=== PATIENT | female | born 1945 | race Caucasian/White ===

== ENCOUNTER 2018-02-21 13:25 | Emergency (ER) | payer MEDICARE | END 2018-02-21 14:23 | disposition home or self-care (01) | LOC: EDH 13:25 | DX: S62.002A Unspecified fracture of navicular [scaphoid] bone of left wrist, initial encounter for closed fracture (principal); Z79.899 Other long term (current) drug therapy; W18.39XA Other fall on same level, initial encounter; Y93.89 Activity, other specified; Y92.098 Other place in other non-institutional residence as the place of occurrence of the external cause; Y99.8 Other external cause status | CPT/HCPCS: 29125; 73110 ==

== ENCOUNTER 2022-08-28 09:41 | Emergency (ER) | payer MEDICARE ==
[~2022-08-28] VITALS: Ht 160 cm; Wt 70.8 kg
[2022-08-28] MEDS ORDERED: NAPR375T6 PO (10:39)
[2022-08-28 10:43] VITALS: BP 131/65
== END 2022-08-28 10:52 | disposition home or self-care (01) ==
LOC: EDH 09:41
DX: S86.911A Strain of unspecified muscle(s) and tendon(s) at lower leg level, right leg, initial encounter (principal); Z90.49 Acquired absence of other specified parts of digestive tract; Z98.890 Other specified postprocedural states; X50.1XXA Overexertion from prolonged static or awkward postures, initial encounter; Y93.K1 Activity, walking an animal; Y92.89 Other specified places as the place of occurrence of the external cause; Y99.8 Other external cause status
CPT/HCPCS: 29505; 73564